=== PATIENT | female | born 1990 | race Caucasian/White ===

== ENCOUNTER 2016-11-11 21:43 | Emergency (ER) | payer OTHER ==
[~2016-11-11] VITALS: Ht 185.4 cm; Wt 93.0 kg
--- NOTE | 2016-11-11 21:50 | NUR ---
PT CAME IN WITH C/O ALLERGIC REACTION AND PT STATES SOME SOB.PT STATES WAS PUT ON ABILIFY,DEPAKOTE,AND SEROQUEL.PT STATES HAS BEEN ON THIS FOR A FEW DAYS AND FEELS LIKE SHE IS SOB AND FEELING " SPACEY".STATES ALSO THAT SHE FEELS NOT ALL TOGETHER.DENIES PAIN... PT IS ALERT, ORIENED X 4, NO RESP DISTRESS NOTED OR REPORTED UPON ASSESSMENT... MD AT BEDSIDE...
[2016-11-11] MEDS ORDERED: VISTARIL (22:00)
[2016-11-11] MEDS ORDERED: DEPAKOTE (22:00)
[2016-11-11] MEDS ORDERED: ABILIFY (22:00)
[2016-11-11] MEDS ORDERED: QUET25TA3 (22:00)
[2016-11-11] MEDS ORDERED: methylPREDNISolone SOD SUCC 125 MG/2 ML VIAL ONE (23:09)
[2016-11-11] MEDS ORDERED: diphenhydrAMINE 50 MG/1 ML VIAL ONE (23:09)
[2016-11-11] MEDS ORDERED: FAMOTIDINE. 20 MG/2 ML VIAL IV ONE (23:10)
[2016-11-11] MEDS: methylPREDNISolone SOD SUCC 125 MG/2 ML VIAL IV ONE (23:10)
[2016-11-11] MEDS: diphenhydrAMINE 50 MG/1 ML VIAL IV ONE (23:11)
[2016-11-11] MEDS: FAMOTIDINE. 20 MG/2 ML VIAL IV ONE (23:11)
--- NOTE | 2016-11-11 23:58 | NUR ---
Patient discharged to home in stable conditon. Written and verbal after care instructions given. Patient verbalizes understanding of instructions. Pt walked out of ER unassisted with belongings at side...
== END 2016-11-12 00:08 | disposition home or self-care (01) ==
LOC: ER 21:46
DX: R06.02 Shortness of breath (principal); T42.6X5A Adverse effect of other antiepileptic and sedative-hypnotic drugs, initial encounter; G43.909 Migraine, unspecified, not intractable, without status migrainosus; F41.9 Anxiety disorder, unspecified; F17.200 Nicotine dependence, unspecified, uncomplicated; Z88.2 Allergy status to sulfonamides; Z90.49 Acquired absence of other specified parts of digestive tract; Y92.89 Other specified places as the place of occurrence of the external cause
CPT/HCPCS: A4663; J1200; J2930; J3490

== ENCOUNTER 2017-04-21 15:45 | Emergency (ER) | payer OTHER ==
[~2017-04-21] VITALS: Ht 185.4 cm; Wt 95.3 kg
[~2017-04-21 15:45] MED LIST: ABILIFY; DEPAKOTE; QUET25TA3; VISTARIL
[2017-04-21] MEDS ORDERED: BUPR100T4 PO (16:01)
[2017-04-21] MEDS ORDERED: ALBUTEROL SULFATE 2.5 MG/ 0.5 ML NEBU NEB ONE (16:45)
[2017-04-21] MEDS ORDERED: IPRATROPIUM BROMIDE 0.5 MG/2.5 ML NEBU NEB ONE (16:45)
[2017-04-21] MEDS ORDERED: ALBUTEROL SULFATE 2.5 MG/3 ML NEBU ONE (17:10)
[2017-04-21] MEDS ORDERED: IPRATROPIUM BROMIDE 0.5 MG/2.5 ML NEBU ONE (17:15)
[2017-04-21] MEDS ORDERED: predniSONE 20 MG TABLET PO ONE (17:45)
[2017-04-21] MEDS ORDERED: predniSONE 20 MG TABLET ONE (17:59)
--- NOTE | 2017-04-21 18:08 | NUR ---
Patient is resting comfortably on gurney with boyfriend at bedside.
--- NOTE | 2017-04-21 18:14 | NUR ---
Patient discharged to home in stable conditon. Written and verbal after care instructions given to patient and boyfriend. Patient and family verbalized understanding of instructions.
== END 2017-04-21 18:15 | disposition home or self-care (01) ==
LOC: ER 15:46
DX: G51.0 Bell's palsy (principal); G43.909 Migraine, unspecified, not intractable, without status migrainosus; F41.9 Anxiety disorder, unspecified; Z88.2 Allergy status to sulfonamides; F17.210 Nicotine dependence, cigarettes, uncomplicated
CPT/HCPCS: 71010; A4663; J3590; J7512